=== PATIENT | female | born 1950 | race African-American/Black ===

== ENCOUNTER 2020-09-03 02:09 | Observation (INO) ==
[2020-09-03] MEDS ORDERED: ASPIRIN 325 MG TABLET PO STA (02:35)
[2020-09-03] MEDS ORDERED: NITROGLYCERIN 2% OINT 1 INCH/GM PACK TOP STA (02:35)
[2020-09-03] MEDS ORDERED: MORPHINE 4 MG/1 ML VIAL IV STA (02:35)
[2020-09-03] MEDS ORDERED: SODIUM CHLORIDE 0.9% 500 ML IV STA (02:35)
[2020-09-03] MEDS ORDERED: ALUM/MAG/SIMETH/LIDO VISC 1:1 30 ML BOTTLE PO STA (02:35)
[2020-09-03] MEDS ORDERED: ONDANSETRON 4 MG/2 ML VIAL IV STA ×2 (02:35→03:42)
[2020-09-03 03:07] LABS: Basophils % 0.2 % (0.0-0.8); Eosinophils # 0.2 10*3/uL (0.0-0.87); Eosinophils % 1.2 % (0.00-10.9); Hematocrit 43.3 VOL% (35.7-47.0); Hemoglobin 14.3 GM/DL (12.0-16.0); Immature Granulocytes % 0.5 %; Immature Granulocytes Absolute 0.06 #; Lymphocytes # 1.5 10*3/uL (1.4-4.0); Lymphocytes % 11.5 % (21.3-54.2); Mean Corpuscular Volume 81.5 FL (87-102); Mean Platelet Volume 9.4 FL (9.6-12.0); Monocytes % 6.3 % (1.7-12.7); Neutrophils % 80.3 % (38.7-73.9); Platelet Count 293 T/CUMM (130-400); Red Blood Count 5.31 MC/CUMM (3.8-5.5); Red Cell Distribution Width 14.9 % (9.3-17.3); White Blood Count 12.6 T/CUMM (4-12)
[2020-09-03] MEDS ORDERED: ATROPINE 1 MG/10 ML SYRINGE IV STA (03:44)
[2020-09-03 03:54] LABS: Albumin 3.1 G/DL (3.4-5.0); Bilirubin,Total 0.5 MG/DL (0.2-1.0); Calcium 8.5 MG/DL (8.5-10.1); Osmolality,Calculated 287.1 MOS/KG (273-304); PT Patient Result 10.7 SECS (9.8-11.9); Total Protein 6.1 G/DL (6.4-8.3)
[2020-09-03] MEDS ORDERED: MORPHINE 4 MG/1 ML VIAL IV PRN (05:26)
[2020-09-03] MEDS ORDERED: DEXTROSE 50% 25 GM/50 ML VIAL IV PRN (05:26)
[2020-09-03] MEDS ORDERED: ONDANSETRON 4 MG/2 ML VIAL IV PRN (05:26)
[2020-09-03] MEDS ORDERED: GLUCAGON 1 MG VIAL IM PRN (05:26)
[2020-09-03] MEDS: INSULIN REGULAR 100 UNIT/ML SUBCUT SCH ×4 (08:23→21:00)
[2020-09-03] MEDS: ENOXAPARIN 40 MG/0.4 ML SYRINGE SUBCUT SCH (09:20)
[2020-09-03] MEDS: PANTOPRAZOLE 40 MG TABLET PO SCH (09:20)
[2020-09-03] MEDS ORDERED: NITROGLYCERIN SL 0.4 MG TABLET SL PRN (11:01)
[2020-09-03] MEDS: METOPROLOL TARTRATE 50 MG TABLET PO SCH (21:00)
[2020-09-04 05:45] LABS: Basophils % 0.3 % (0.0-0.8); Eosinophils # 0.2 10*3/uL (0.0-0.87); Eosinophils % 2.7 % (0.00-10.9); Hematocrit 38.1 VOL% (35.7-47.0); Hemoglobin 12.6 GM/DL (12.0-16.0); Immature Granulocytes % 0.2 %; Immature Granulocytes Absolute 0.01 #; Lymphocytes # 2.3 10*3/uL (1.4-4.0); Lymphocytes % 34.7 % (21.3-54.2); Mean Corpuscular HGB Conc 33.1 GM/DL (32-36); Mean Corpuscular Volume 81.9 FL (87-102); Mean Platelet Volume 9.7 FL (9.6-12.0); Monocytes % 10.2 % (1.7-12.7); Neutrophils % 51.9 % (38.7-73.9); Platelet Count 262 T/CUMM (130-400); Red Blood Count 4.65 MC/CUMM (3.8-5.5); Red Cell Distribution Width 14.8 % (9.3-17.3); White Blood Count 6.6 T/CUMM (4-12)
[2020-09-04 05:52] LABS: Calcium 8.5 MG/DL (8.5-10.1); Osmolality,Calculated 282.3 MOS/KG (273-304)
[2020-09-04] MEDS: ENOXAPARIN 40 MG/0.4 ML SYRINGE SUBCUT SCH (06:06)
[2020-09-04] MEDS: INSULIN REGULAR 100 UNIT/ML SUBCUT SCH ×2 (07:57→10:57)
[2020-09-04 07:59] VITALS: BP 151/67
[2020-09-04] MEDS: METOPROLOL TARTRATE 50 MG TABLET PO SCH (07:59)
[2020-09-04] MEDS: PANTOPRAZOLE 40 MG TABLET PO SCH (07:59)
[2020-09-04] MEDS ORDERED: POTASSIUM CHLORIDE 20 MEQ TABLET PO ONE (08:15)
[2020-09-04] MEDS ORDERED: CLOPIDOGREL 75 MG TABLET PO SCH (09:00)
[2020-09-04] MEDS ORDERED: ROSUVASTATIN 20 MG TABLET PO SCH (09:00)
[2020-09-04] MEDS ORDERED: ENALAPRIL 20 MG TABLET PO SCH (09:00)
[2020-09-04] MEDS ORDERED: ISOSORBIDE MONONITRATE 30 MG TABLET PO SCH (09:00)
[2020-09-04] MEDS ORDERED: ASPIRIN EC 81 MG TABLET PO SCH (09:00)
== END 2020-09-04 11:30 | disposition home or self-care (01) ==
LOC: EDUNIT# → EDBD → N.ED 02:09 → N.EDINP 02:09 → N.TELES 06:31
PROVIDERS: ADMIT Internal Medicine; ATTEND Internal Medicine